=== PATIENT | male | born 1970 | race Hispanic/Latino ===

== ENCOUNTER 2017-12-14 06:59 | Day surgery (SDC) | payer OTHER ==
[2017-12-13 14:39] VITALS: BP 118/75
[2017-12-14] VITALS (16 sets, daily range): BP systolic 100–116; BP diastolic 51–71
[~2017-12-14] VITALS: Ht 171.4 cm; Wt 80.9 kg
[2017-12-14] MEDS ORDERED: IOHEXOL-350 50ML VIAL IV ONE (09:45)
[2017-12-14] MEDS: LEVOFLOXACIN 500 MG/D5W 100 ML 100 ML IV PRN ×2 (09:50→09:53)
[2017-12-14] MEDS ORDERED: LACTATED RINGERS 1000ML 1,000 ML IV ONE (09:53)
[2017-12-14] MEDS ORDERED: PROPOFOL 10 MG/ML 20ML VIAL IV ONE (09:57)
[2017-12-14] MEDS ORDERED: FENTANYL CITRATE PF 50 MCG/1 ML 2ML VIAL ONE ×2 (09:57→10:37)
[2017-12-14] MEDS ORDERED: LIDOCAINE PF 2% 5ML ABBOJECT ONE (09:57)
[2017-12-14] MEDS ORDERED: MIDAZOLAM HCL 1 MG/ML 2ML VIAL ONE (10:03)
[2017-12-14] MEDS ORDERED: SODIUM CHLORIDE 0.9% 10 ML VIAL ONE (10:23)
[2017-12-14] MEDS ORDERED: PHENYLEPHRINE HCL 10 MG/ML 1ML VIAL IV ONE (10:23)
[2017-12-14] MEDS ORDERED: OPIUM/BELLADONNA ALKALOIDS 1 EACH SUPP.RECT RC ONE (11:34)
[2017-12-14] MEDS ORDERED: PHENAZOPYRIDINE HCL 200 MG TABLET ONE (12:06)
== END 2017-12-14 12:45 | disposition home or self-care (01) ==
LOC: DAH 06:59
PROVIDERS: ATTEND Urology
DX: N13.2 Hydronephrosis with renal and ureteral calculous obstruction (principal); N28.89 Other specified disorders of kidney and ureter; Z79.2 Long term (current) use of antibiotics; Z83.3 Family history of diabetes mellitus; Z82.49 Family history of ischemic heart disease and other diseases of the circulatory system
CPT/HCPCS: 52332; 74420; A4344; A4358; A4510; A4600; C1758 ×2; C1769 ×3; C2617; J1956; J2001; J2250; J2370; J2704; J3010 ×2; J7120 ×2; Q9967

== ENCOUNTER → 2018-01-01 | Outpatient (CLI) | payer OTHER ==
[~2018-01-01] MED LIST: FUROSEMIDE 10 MG/ML 4ML VIAL ONE
== END | disposition home or self-care (01) ==
LOC: RAH 13:37
PROVIDERS: ATTEND Urology
DX: N13.30 Unspecified hydronephrosis (principal)
CPT/HCPCS: 78708; A9562; J1940

== ENCOUNTER 2018-03-29 08:02 | Day surgery (SDC) | payer OTHER ==
[2018-03-27 11:15] VITALS: BP 120/71
[2018-03-27 11:18] LABS: BASOPHILS % (AUTO) 0.9 % (0.0-5.0); HEMATOCRIT 43.7 % (42-54); LYMPHOCYTES % (AUTO) 32.4 % (21.0-51.0); MEAN CORPUSCULAR HEMOGLOBIN 31.2 pg (27.0-33.0); MEAN CORPUSCULAR HGB CONC 34.3 g/dL (32.0-36.0); MEAN CORPUSCULAR VOLUME 90.9 fL (79-99); MONOCYTES % (AUTO) 11.1 % (3.0-13.0); NEUTROPHILS % (AUTO) 53.6 % (40.0-77.0); PLATELET COUNT (AUTO) 344 K/uL (130-400); RED CELL DISTRIBUTION WIDTH 12.8 % (11.0-15.5); WHITE BLOOD COUNT (AUTO) 5.5 K/uL (4.8-10.8)
[~2018-03-29] VITALS: Ht 172.7 cm; Wt 79.0 kg
[2018-03-29] VITALS (14 sets, daily range): BP systolic 78–129; BP diastolic 45–83
[~2018-03-29 08:02] MED LIST changes: +AMLO5TAB9 PO; +BUPR100T13 PO; +CEFTRIAXONE SODIUM 1 GM IVP SCH; -FUROSEMIDE 10 MG/ML 4ML VIAL ONE; +OMEP20TA25 PO; +TRAZ-185 PO
[2018-03-29] MEDS ORDERED: LACTATED RINGERS 1000ML 1,000 ML IV ONE (08:33)
[2018-03-29] MEDS ORDERED: IOHEXOL-350 50ML VIAL IV ONE (10:06)
[2018-03-29] MEDS ORDERED: SCOPOLAMINE HYDROBROMIDE 1 EACH ADH..PATCH TD ONE (11:51)
[2018-03-29] MEDS ORDERED: DEXAMETHASONE SOD PHOSPHATE 10MG/ML 1ML VIAL ONE (11:52)
[2018-03-29] MEDS ORDERED: LIDOCAINE PF 2% 5ML ABBOJECT ONE ×2 (11:52→13:17)
[2018-03-29] MEDS ORDERED: ONDANSETRON HCL 4 MG/2 ML VIAL ONE (11:53)
[2018-03-29] MEDS ORDERED: NEOSTIGMINE 5MG/5ML SYR IV ONE (11:53)
[2018-03-29] MEDS ORDERED: MIDAZOLAM HCL 1 MG/ML 2ML VIAL ONE ×3 (11:53→12:03)
[2018-03-29] MEDS ORDERED: ROCURONIUM 10MG/1ML SYR 10 MG/ML ML ONE (11:53)
[2018-03-29] MEDS ORDERED: GLYCOPYRROLATE 1 MG/5 ML SYRINGE ONE (11:53)
[2018-03-29] MEDS ORDERED: FENTANYL CITRATE PF 50 MCG/1 ML 2ML VIAL ONE (11:53)
[2018-03-29] MEDS ORDERED: PROPOFOL 10 MG/ML 20ML VIAL IV ONE (11:53)
[2018-03-29] MEDS ORDERED: PROPRANOLOL HCL 1 MG/ML VIAL IVP ONE ×2 (12:27→12:30)
[2018-03-29] MEDS ORDERED: LIDOCAINE HCL 2% PF 20 ML JEL DISP.SYRIN MM ONE (13:09)
[2018-03-29] MEDS ORDERED: OPIUM/BELLADONNA ALKALOIDS 1 EACH SUPP.RECT RC ONE (13:46)
--- NOTE | 2018-03-29 14:44 | NUR ---
FU CATHETER REMOVED, RED TINGED URINE, PATIENT VOIDED X1 IN RESTROOM. PATIENT STATES FEELING WELL.
[2018-03-29] MEDS ORDERED: PHENAZOPYRIDINE HCL 200 MG TABLET ONE (14:51)
--- NOTE | 2018-03-29 15:31 | NUR ---
PER EVGENY REGALADO MET[employer]ESSER PATIENT MAY KEEP SCOPALAMIN PATCH ON FOR UP TO 3 DAYS. PATIENT INSTRUCTED TO REMOVE PATCH IN 3 DAYS IF HE DECIDED TO KEEP IT ON FOR NAUSEA AND VOMIT.
== END 2018-03-29 15:20 | disposition home or self-care (01) ==
LOC: DAH 08:02
PROVIDERS: ATTEND Urology
DX: N13.2 Hydronephrosis with renal and ureteral calculous obstruction (principal); Z85.53 Personal history of malignant neoplasm of renal pelvis; Z90.5 Acquired absence of kidney; Z82.49 Family history of ischemic heart disease and other diseases of the circulatory system; Z83.3 Family history of diabetes mellitus; Z79.899 Other long term (current) drug therapy
CPT/HCPCS: 36415; 52356; 74420; 85025; A4218; A4344; A4358; A4510; A4600; A4649; C1758; C1769; C2617; J0696; J1100; J1800 ×2; J2001 ×2; J2250 ×3; J2405; J2704; J2710; J3010; J3490; J7120 ×2; Q9967

== ENCOUNTER 2018-08-16 07:24 | Day surgery (SDC) | payer OTHER ==
[~2018-08-16] VITALS: Ht 170.2 cm; Wt 77.1 kg
[2018-08-16] VITALS (15 sets, daily range): BP systolic 89–127; BP diastolic 51–78
[~2018-08-16 07:24] MED LIST changes: -CEFTRIAXONE SODIUM 1 GM IVP SCH
[2018-08-16 07:51] LABS: BASOPHILS % (AUTO) 0.6 % (0.0-5.0); EOSINOPHILS % (AUTO) 1.4 % (0.0-8.0); HEMATOCRIT 44.4 % (42-54); LYMPHOCYTES % (AUTO) 26.6 % (21.0-51.0); MEAN CORPUSCULAR HEMOGLOBIN 31.6 pg (27.0-33.0); MEAN CORPUSCULAR HGB CONC 34.7 g/dL (32.0-36.0); MEAN CORPUSCULAR VOLUME 91.2 fL (79-99); MONOCYTES % (AUTO) 10.7 % (3.0-13.0); NEUTROPHILS % (AUTO) 60.7 % (40.0-77.0); PLATELET COUNT (AUTO) 329 K/uL (130-400); RED BLOOD CELL COUNT(AUTO) 4.87 MIL/uL (4.50-6.20); RED CELL DISTRIBUTION WIDTH 12.6 % (11.0-15.5); WHITE BLOOD COUNT (AUTO) 6.7 K/uL (4.8-10.8)
[2018-08-16] MEDS: CEFTRIAXONE SODIUM 1 GM IVP SCH ×2 (08:15→09:45)
[2018-08-16] MEDS ORDERED: LIDOCAINE PF 2% 5ML ABBOJECT ONE (09:07)
[2018-08-16] MEDS ORDERED: LACTATED RINGERS 1000ML 1,000 ML IV ONE (09:07)
[2018-08-16] MEDS ORDERED: PROPOFOL 10 MG/ML 20ML VIAL IV ONE (09:07)
[2018-08-16] MEDS ORDERED: FENTANYL CITRATE PF 50 MCG/1 ML 2ML VIAL ONE (09:08)
[2018-08-16] MEDS ORDERED: PHENYLEPHRINE HCL 10 MG/ML 1ML VIAL IV ONE ×2 (09:10→10:01)
[2018-08-16] MEDS ORDERED: MIDAZOLAM HCL 1 MG/ML 2ML VIAL ONE (09:12)
[2018-08-16] MEDS ORDERED: IOHEXOL-350 50ML VIAL IV ONE (09:23)
[2018-08-16] MEDS ORDERED: SCOPOLAMINE HYDROBROMIDE 1 EACH ADH..PATCH TD ONE (09:28)
[2018-08-16] MEDS ORDERED: METOCLOPRAMIDE 10 MG/2 ML VIAL ONE (09:40)
[2018-08-16] MEDS ORDERED: DiphenhydrAMINE HCL 50 MG/ML VIAL ONE (09:44)
[2018-08-16] MEDS ORDERED: ONDANSETRON HCL 4 MG/2 ML VIAL ONE (09:56)
[2018-08-16] MEDS ORDERED: DEXAMETHASONE SOD PHOSPHATE 10MG/ML 1ML VIAL ONE (09:56)
[2018-08-16] MEDS: OPIUM/BELLADONNA ALKALOIDS 1 EACH SUPP.RECT RC ONE ×2 (10:11→10:57)
--- NOTE | 2018-08-16 11:45 | NUR ---
FU REMOVED, NO RESISTANCE
[2018-08-16] MEDS ORDERED: PHENAZOPYRIDINE HCL 200 MG TABLET ONE (12:01)
== END 2018-08-16 12:35 | disposition home or self-care (01) ==
LOC: DAH 07:24
PROVIDERS: ATTEND Urology
DX: N13.1 Hydronephrosis with ureteral stricture, not elsewhere classified (principal); Z98.890 Other specified postprocedural states; Z79.899 Other long term (current) drug therapy; I10 Essential (primary) hypertension; Z90.5 Acquired absence of kidney; Z85.528 Personal history of other malignant neoplasm of kidney
CPT/HCPCS: 36415; 52332; 74420; 85025; A4218; A4344; A4358; A4510; A4600; C1758; C1769; C2617; J0696; J1100; J1200; J2001; J2250; J2370 ×2; J2405; J2704; J2765; J3010; J7120 ×2; Q9967

== ENCOUNTER 2018-11-15 06:58 | Day surgery (SDC) | payer OTHER ==
[2018-11-13 15:51] LABS: BASOPHILS % (AUTO) 1.1 % (0.0-5.0); HEMATOCRIT 45.9 % (42-54); LYMPHOCYTES % (AUTO) 30.9 % (21.0-51.0); MEAN CORPUSCULAR HGB CONC 34.6 g/dL (32.0-36.0); MEAN CORPUSCULAR VOLUME 92.3 fL (79-99); PLATELET COUNT (AUTO) 306 K/uL (130-400); RED BLOOD CELL COUNT(AUTO) 4.97 MIL/uL (4.50-6.20); RED CELL DISTRIBUTION WIDTH 13.1 % (11.0-15.5); WHITE BLOOD COUNT (AUTO) 4.9 K/uL (4.8-10.8)
[2018-11-13 15:53] VITALS: BP 129/73
[2018-11-15] VITALS (15 sets, daily range): BP systolic 95–134; BP diastolic 56–84
[~2018-11-15] VITALS: Ht 171.4 cm; Wt 80.0 kg
[~2018-11-15 06:58] MED LIST changes: -OMEP20TA25 PO
[2018-11-15] MEDS ORDERED: LACTATED RINGERS 1000ML 1,000 ML IV ONE (07:26)
[2018-11-15] MEDS: CEFTRIAXONE SODIUM 1 GM IVP SCH ×2 (07:30→08:55)
[2018-11-15] MEDS ORDERED: IOHEXOL-350 50ML VIAL IV ONE (07:55)
[2018-11-15] MEDS ORDERED: SCOPOLAMINE HYDROBROMIDE 1 EACH ADH..PATCH TD ONE (08:15)
[2018-11-15] MEDS ORDERED: LIDOCAINE PF 2% 5ML ABBOJECT ONE (08:17)
[2018-11-15] MEDS ORDERED: PROPOFOL 10 MG/ML 20ML VIAL IV ONE (08:18)
[2018-11-15] MEDS ORDERED: FENTANYL CITRATE PF 50 MCG/1 ML 2ML VIAL ONE (08:18)
[2018-11-15] MEDS ORDERED: MIDAZOLAM HCL 1 MG/ML 2ML VIAL ONE (08:18)
[2018-11-15] MEDS ORDERED: OPIUM/BELLADONNA ALKALOIDS 1 EACH SUPP.RECT RC ONE (09:23)
[2018-11-15] MEDS ORDERED: PHENAZOPYRIDINE HCL 200 MG TABLET ONE (10:00)
== END 2018-11-15 11:12 | disposition home or self-care (01) ==
LOC: DAH 06:58
PROVIDERS: ATTEND Urology
DX: N13.1 Hydronephrosis with ureteral stricture, not elsewhere classified (principal); I10 Essential (primary) hypertension; Z90.5 Acquired absence of kidney; K21.9 Gastro-esophageal reflux disease without esophagitis; N40.0 Benign prostatic hyperplasia without lower urinary tract symptoms; Z98.890 Other specified postprocedural states; Z79.899 Other long term (current) drug therapy
CPT/HCPCS: 36415; 52332; 52344; 74420; 80048; 85025; A4344; A4358; A4510; A4600; C1726; C1758; C1769; C2617; J0696; J2001; J2250; J2704; J3010; J7120 ×2; Q9967

== ENCOUNTER 2019-11-14 07:41 | Day surgery (SDC) | payer OTHER ==
[2019-11-13 09:18] VITALS: BP 119/72
[2019-11-14] VITALS (17 sets, daily range): BP systolic 109–131; BP diastolic 71–84
[~2019-11-14] VITALS: Ht 170.2 cm; Wt 83.4 kg
[2019-11-14] MEDS: CEFTRIAXONE SODIUM 1 GM IVP SCH ×2 (06:00→09:30)
[~2019-11-14 07:41] MED LIST changes: +AMLO10TA7 PO; -AMLO5TAB9 PO; +B12 COMPLEX PO; -BUPR100T13 PO; +LACTATED RINGERS 1000ML 1,000 ML IV ONE; +OMEP20CA12 PO; +VITAMIN C PO
[2019-11-14] MEDS ORDERED: IOHEXOL-350 50ML VIAL IV ONE (07:52)
[2019-11-14] MEDS ORDERED: SCOPOLAMINE HYDROBROMIDE 1 EACH ADH..PATCH TD ONE (08:14)
[2019-11-14] MEDS ORDERED: FENTANYL CITRATE PF 50 MCG/1 ML 2ML VIAL ONE (09:20)
[2019-11-14] MEDS ORDERED: ROCURONIUM 10MG/1ML SYR 10 MG/ML ML ONE (09:20)
[2019-11-14] MEDS ORDERED: SUCCINYLCHOLINE 200MG/10ML SYR ONE (09:20)
[2019-11-14] MEDS ORDERED: LIDOCAINE PF 2% 5ML ABBOJECT ONE (09:20)
[2019-11-14] MEDS ORDERED: PROPOFOL 10 MG/ML 20ML VIAL IV ONE (09:20)
[2019-11-14] MEDS ORDERED: OPIUM/BELLADONNA ALKALOIDS 1 EACH SUPP.RECT RC ONE (09:53)
[2019-11-14] MEDS ORDERED: NEOSTIGMINE 5MG/5ML SYR IV ONE (09:58)
[2019-11-14] MEDS ORDERED: GLYCOPYRROLATE 1 MG/5 ML SYRINGE ONE (09:58)
[2019-11-14] MEDS ORDERED: ONDANSETRON HCL 4 MG/2 ML VIAL ONE (10:01)
[2019-11-14] MEDS ORDERED: DEXAMETHASONE SOD PHOSPHATE 10MG/ML 1ML VIAL ONE (10:01)
[2019-11-14] MEDS ORDERED: PHENAZOPYRIDINE HCL 200 MG TABLET ONE (11:10)
== END 2019-11-14 12:00 | disposition home or self-care (01) ==
LOC: DAH 07:41
PROVIDERS: ATTEND Urology
DX: N13.1 Hydronephrosis with ureteral stricture, not elsewhere classified (principal); K21.9 Gastro-esophageal reflux disease without esophagitis; I10 Essential (primary) hypertension; F31.9 Bipolar disorder, unspecified; E66.01 Morbid (severe) obesity due to excess calories; Z11.59 Encounter for screening for other viral diseases
CPT/HCPCS: 52332; 74420; A4215; A4221; A4222; A4223; A4344; A4358; A4600; A4657; A4663; A4930; A6260; C1758; C1769; C2617; J0330; J0696; J1100; J2001; J2405; J2704; J2710; J3010; J3490; J7030; J7120 ×2; Q9967; U0003